=== PATIENT | male | born 1970 | race African-American/Black ===

== ENCOUNTER 2017-05-26 08:36 | Outpatient (CLI) | payer OTHER | END 2017-05-26 08:37 | disposition home or self-care (01) | LOC: DTY/OP 08:36 | PROVIDERS: ATTEND Family Medicine | DX: I10 Essential (primary) hypertension (principal) | CPT/HCPCS: 97802 ==

== ENCOUNTER 2024-11-09 16:42 | Outpatient (CLI) | payer BC | END 2024-11-09 16:43 | disposition home or self-care (01) | LOC: RAD 16:42 | PROVIDERS: ATTEND Family Medicine | DX: Z87.01 Personal history of pneumonia (recurrent) (principal) | CPT/HCPCS: 71046 ==